=== PATIENT | male | born 1985 | race African-American/Black ===

== ENCOUNTER 2017-07-21 21:52 | Emergency (ER) | payer BC ==
[~2017-07-21] VITALS: Ht 180.3 cm; Wt 107.5 kg
[2017-07-21 22:26] VITALS: Ht 180.3 cm; Wt 107.5 kg
[2017-07-22 00:57] VITALS: BP 147/85
== END 2017-07-22 00:57 | disposition home or self-care (01) ==
LOC: ED 21:52
DX: M25.572 Pain in left ankle and joints of left foot (principal); R60.0 Localized edema; R03.0 Elevated blood-pressure reading, without diagnosis of hypertension; J45.909 Unspecified asthma, uncomplicated